=== PATIENT | male | born 1995 | race Two or more races ===

== ENCOUNTER 2018-07-10 17:59 | Inpatient (IN) | payer OTHER ==
[~2018-07-10] VITALS: Ht 180.3 cm; Wt 65.8 kg
--- NOTE | 2018-07-10 18:30 | NUR ---
PT SENT HERE FROM DR. GUPTA'S OFFICE FOR ELEVATED LFT'S & PLATELETS & FOR CT SCAN OF ABD. PT AAOX3, VSS. DENIES ABD PAIN, N/V/D @ THIS TIME. PT SEEN & EVAL'D BY JUAN J VAZQUEZ & WILL CONT TO MONITOR. MOM @ BS.
--- NOTE | 2018-07-10 18:57 | NUR ---
PT BACK FROM CT VIA WHEELCHAIR.
--- NOTE | 2018-07-10 19:52 | NUR ---
JUAN J SAMANIEGO SPEAKING TO DR. CANDY BARLOW
[2018-07-10] MEDS ORDERED: PIPERACILLIN /TAZOBACTAM 3.375 G in IV D5W 50 ML IV ONE (20:00)
[2018-07-10] MEDS ORDERED: IV NS 0.9% 1,000 ML BAG IV ONE (20:00)
[2018-07-10] MEDS ORDERED: PIPERACILLIN /TAZOBACTAM 3.375 G VIAL IV ONE (20:20)
[2018-07-10 20:35] LABS: BASOPHILS % (AUTO) 0.5 % (0.0-2.0); EOSINOPHILS % (AUTO) 0.5 % (0.0-6.0); HEMATOCRIT 37 % (39-51); HEMOGLOBIN 12.5 g/dL (13.5-17.5); LYMPHOCYTES # (AUTO) 3.3 /CMM (0.8-4.8); LYMPHOCYTES % (AUTO) 49.5 % (20.0-44.0); MEAN CORPUSCULAR HGB CONC 34 g/dl (31.0-36.0); MEAN CORPUSCULAR VOLUME 91 fL (80-96); MONOCYTES # (AUTO) 0.8 /CMM (0.1-1.30); MONOCYTES % (AUTO) 12.3 % (2.0-12.0); NEUTROPHILS # (AUTO) 2.5 /CMM (1.8-8.9); NEUTROPHILS % (AUTO) 37.2 % (43.0-81.0); PLATELET COUNT (AUTO) 230 /CMM (150-450); RDW COEFFICIENT OF VARIATION 12.8 (11.5-15.0); RED BLOOD CELL COUNT(AUTO) 4.12 MIL/uL (4.5-6.0); WHITE BLOOD COUNT (AUTO) 6.6 K/uL (4.3-11.0)
--- NOTE | 2018-07-10 20:39 | NUR ---
PT STABLE, DENIES ABD PAIN, N/V/D @ THIS TIME. MEDICATED PER PA'S ORDER, PT LIZETT WELL. PARENT @ BS.
[2018-07-10 20:43] LABS: CALCIUM, SERUM 8.9 mg/dL (8.5-10.1); CREATININE 0.9 mg/dL (0.6-1.3); POTASSIUM 3.6 mmol/L (3.5-5.1)
[2018-07-10 20:50] LABS: ALBUMIN 3.2 g/dL (3.4-5.0); BILIRUBIN,DIRECT 0.1 mg/dL (0.0-0.2); BILIRUBIN,TOTAL 0.5 mg/dL (0.2-1.0); TOTAL PROTEIN, SERUM 8.8 g/dL (6.4-8.2)
--- NOTE | 2018-07-10 22:10 | NUR ---
PER ADMITTING, PT OKAY TO ADMIT.
--- NOTE | 2018-07-10 22:40 | NUR ---
MS RN OPENING/ADMITTING NOTE Patient arrived from ED on stretcher but was able to stand and ambulate steady to the bed. He is AAOx4, breathing on RA with no SOB, and no signs of acute distress. Patient denies pain. IV in right AC is intact and patent. Physical assessment completed, past medical history completed. Vital signs WNL. Patient was oriented to room and use of call laws. Mom is at bedside. All questions/concerns have been addressed. Patient has no immediate needs at this time. New orders acknowledged. Will continue to monitor.
[2018-07-10 22:50] VITALS: BP 125/73
[2018-07-10 23:00] VITALS: BP 125/73
[2018-07-10] MEDS ORDERED: ZOLPIDEM TARTRATE 5 MG TABLET PO PRN ×2 (23:00)
[2018-07-10] MEDS ORDERED: ONDANSETRON HCL/PF 4 MG/2 ML VIAL IV PRN ×2 (23:00)
[2018-07-10] MEDS ORDERED: ACETAMINOPHEN 325 MG TABLET PO PRN ×2 (23:00)
[2018-07-10] MEDS ORDERED: Potassium Chloride 20 MEQ in IV D5/ 0.9% NACL 1,000 ML IV SCH ×4 (23:00)
--- NOTE | 2018-07-11 00:14 | NUR ---
MS RN NOTE - Phone Call with Dr. Rivas, D/C IV fluids Patient had order for D5-NS with 20mEq of KCL at 50ml/hr. Per Nurse [employer]par[employer] Counseling Aide, the hospital only carries D5-1/2 NS with 20mEq KCl or D5 in water with 20mEq KCl. I spoke with Dr. Rivas on the phone, and he said to D/C IV fluids. I told him what we had available and made sure he did not want to substitute with something else. Dr. Rivas still said D/C IV fluids.
--- NOTE | 2018-07-11 01:37 | NUR ---
GOT REPORT FROM PRIYA AND RECEIVED OT IN BED SLEEPING. BREATHING EVENLY. NO SOB. NAD .NO S/S OR C/O PAIN OR DISCOMFORT AT THIS TIME . CALL LIGHT WITHIN REACH. WILL CONT TO MONITOR ,
--- NOTE | 2018-07-11 07:09 | NUR ---
PT IN BED DOZING INTERMITTENTLY. BREATHING EVENLY, NO ACUTE EVENT DURING THE NIGHT. NO BM, NO N/V, NO C/O PAIN OR DISCOMFORT. WILL CONT TO MONITOR AND WILL ENDORSE TO AM SHIFT FOR VALORIE
[2018-07-11 07:31] LABS: BASOPHILS % (AUTO) 0.4 % (0.0-2.0); EOSINOPHILS % (AUTO) 0.8 % (0.0-6.0); HEMATOCRIT 35 % (39-51); HEMOGLOBIN 11.7 g/dL (13.5-17.5); LYMPHOCYTES # (AUTO) 4.2 /CMM (0.8-4.8); LYMPHOCYTES % (AUTO) 54.4 % (20.0-44.0); MEAN CORPUSCULAR HGB CONC 34 g/dl (31.0-36.0); MEAN CORPUSCULAR VOLUME 94 fL (80-96); MONOCYTES # (AUTO) 1.1 /CMM (0.1-1.30); MONOCYTES % (AUTO) 13.8 % (2.0-12.0); NEUTROPHILS # (AUTO) 2.4 /CMM (1.8-8.9); NEUTROPHILS % (AUTO) 30.6 % (43.0-81.0); RED BLOOD CELL COUNT(AUTO) 3.68 MIL/uL (4.5-6.0); WHITE BLOOD COUNT (AUTO) 7.7 K/uL (4.3-11.0)
--- NOTE | 2018-07-11 07:39 | NUR ---
MS RN OPENING NOTES RECEIVED PT FORM NIGHTSHIFT NURSE IN STABLE. PT IS A/O X4. NO SOB OR ACUTE SIGNS OF DISTRESS NOTED. HE DENIES ANY ABDOMINAL PAIN , N/V, OR DIARRHEA. IV NOTED TO BE PATENT AND INTACT. BED IN LOW LOCKED POSITION, SIDE RAILS UP X2, CALL LIGHT WITHIN REACH. WILL CONTINUE TO MONITOR
[2018-07-11 07:45] LABS: ALBUMIN 2.3 g/dL (3.4-5.0); BILIRUBIN,TOTAL 0.3 mg/dL (0.2-1.0); CALCIUM, SERUM 7.7 mg/dL (8.5-10.1); CREATININE 0.8 mg/dL (0.6-1.3); POTASSIUM 3.3 mmol/L (3.5-5.1); TOTAL PROTEIN, SERUM 7.3 g/dL (6.4-8.2)
[2018-07-11 07:49] LABS: THYROID STIMULATING HORMONE 0.685 uIU/mL (0.358-3.74)
[2018-07-11] MEDS ORDERED: POTA10TA15 PO (08:08)
[2018-07-11 08:17] VITALS: BP 113/65
[2018-07-11 08:27] LABS: EOSINOPHILS % (MANUAL) 1 % (0-4); LYMPHOCYTES % (MANUAL) 54 % (16-48); MONOCYTES % (MANUAL) 17 % (0-11.0); NEUTROPHILS % (MANUAL) 28 (42-76)
[2018-07-11 08:35] LABS: AMYLASE 139 U/L (25-115); LIPASE 606 U/L (73-393)
[2018-07-11] MEDS ORDERED: POTASSIUM CHLORIDE 20 MEQ TAB.PRT.SR PO ONE (09:00)
[2018-07-11 09:20] LABS: PLATELET COUNT (AUTO) 222 /CMM (150-450)
--- NOTE | 2018-07-11 12:32 | NUR ---
PT TAKEN OFF UNIT TO HIDA SCAN IN STABLE CONDITION
[2018-07-11 15:55] VITALS: BP 118/67
--- NOTE | 2018-07-11 17:06 | NUR ---
MS PATIENT REGISTRATION MANAGER NOTES PT WAS DISCHARGED ROM FACILITY IN STABLE CONDITION. ALL NEEDS WERE MET DURING SHIFT AND ORDERS CARRIED OUT ACCORDINGLY. ALL DUE MEDS GIVEN. RESULTS OF HIDA SCAN REVIEWED WITH MD. PER MD "PT CAN BE DISCHARGED WITH ORDERS TO FOLLOW UP WITH HIS PRIMARY CARE PHYSICIAN AND ADVANCE HIS DIET TOLERATED". PT ALSO PROVIDED WITH CD COPY OF IMAGING RESULTS INCLUDING ALL D/C PAPERWORK. HER VERBALIZED FULL UNDERSTANDING OF D/C INFORMATION. IV WAS SUCCESSFULLY REMOVED WITH NO COMPLICATIONS. HE WAS SAFELY ESCORTED FROM UNIT TO MAIN LOBBY BY MANAGER OF PRODUCT AND LEFT VIA PRIVATE VEHICLE WITH ALL BELONGINGS
== END 2018-07-11 17:00 | disposition home or self-care (01) | DRG 865 ==
LOC: ER 18:06 → MED 22:28
PROVIDERS: ADMIT Internal Medicine; ATTEND Internal Medicine
DX: B27.90 Infectious mononucleosis, unspecified without complication (principal); K85.90 Acute pancreatitis without necrosis or infection, unspecified; I88.0 Nonspecific mesenteric lymphadenitis; R16.2 Hepatomegaly with splenomegaly, not elsewhere classified; K82.9 Disease of gallbladder, unspecified
CPT/HCPCS: 36415; 71045-TC; 78226; 80048-TC; 80053-TC; 80076-TC; 82150-TC; 83690-TC; 84443-TC; 85025-TC; 86663; 86664; 86665; 87040-TC; 87081-TC; A4606; A9537; J2543; J3480; J7030; J7042; J7060; Z7610

== ENCOUNTER 2020-08-07 12:28 | Emergency (ER) | payer OTHER ==
[~2020-08-07] VITALS: Ht 180.3 cm; Wt 78.0 kg
[~2020-08-07 12:28] MED LIST: POTA10TA15 PO
[2020-08-07 13:18] VITALS: BP 136/71
--- NOTE | 2020-08-07 13:18 | NUR ---
Patient discharged to home in stable condition. Written and verbal after care instructions given. Patient verbalizes understanding of instruction.
== END 2020-08-07 13:19 | disposition home or self-care (01) ==
LOC: ER 12:35
DX: S46.811A Strain of other muscles, fascia and tendons at shoulder and upper arm level, right arm, initial encounter (principal); Z98.890 Other specified postprocedural states; V49.69XA Unspecified car occupant injured in collision with other motor vehicles in traffic accident, initial encounter; Y93.89 Activity, other specified; Y92.413 State road as the place of occurrence of the external cause; Y99.8 Other external cause status
CPT/HCPCS: 73030-TC

== ENCOUNTER 2021-04-28 17:44 | Emergency (ER) | payer OTHER ==
[~2021-04-28] VITALS: Ht 170.2 cm; Wt 70.3 kg
[2021-04-28 17:49] VITALS: BP 129/80
[2021-04-28] MEDS ORDERED: KETOROLAC TROMETHAMINE INJ 30 MG/ML VIAL ONE (18:04)
[2021-04-28] MEDS: KETOROLAC TROMETHAMINE INJ 60 MG/2 ML VIAL IM ONE (18:10)
--- NOTE | 2021-04-28 18:10 | NUR ---
radiology at bedside for r knee xray.
[2021-04-28] MEDS ORDERED: OXYC-128 PO (19:03)
--- NOTE | 2021-04-28 19:28 | NUR ---
Patient discharged to home in stable condition. Written and verbal after care instructions given. Patient verbalizes understanding of instruction. Crutches dispensed. Pt instructed on proper use of crutches. Patient able to demonstrate correct use of crutches.
== END 2021-04-28 19:29 | disposition home or self-care (01) ==
LOC: ER 17:47
DX: S89.81XA Other specified injuries of right lower leg, initial encounter (principal); Z98.890 Other specified postprocedural states; Z79.899 Other long term (current) drug therapy; V00.131A Fall from skateboard, initial encounter; Y93.51 Activity, roller skating (inline) and skateboarding; Y92.331 Roller skating rink as the place of occurrence of the external cause; Y99.8 Other external cause status
CPT/HCPCS: 29505; 73564; 96372; 99283; J1885